=== PATIENT | female | born 1945 | race Caucasian/White ===

== ENCOUNTER → 2016-11-21 | Outpatient (CLI) | payer MEDICARE ==
--- NOTE | 2016-11-21 10:04 | USB ---
Reason for exam: clinical finding. History: Patient is postmenopausal. Family history of breast cancer in 2 maternal cousins. Took estrogen for 1 month beginning at age 43. Took progesterone for 1 month. Indicated problem(s): pain in the left breast. US Breast Limited BILAT Right breast ultrasound demonstrates axilla nodes. Left breast ultrasound includes all four quadrants, the retroareolar region and axilla. Finding demonstrates three nodes at 3 o'clock. These results were verbally communicated with the patient and result sheet given to the patient on 11/21/16. ASSESSMENT: Probably benign, BI-RAD 3 RECOMMENDATION: Ultrasound of the left breast in 6 months. Manage on a clinical basis with regard to pain in the left breast and right axillary.
--- NOTE | 2016-11-23 11:03 | MM ---
Reason for exam: clinical finding. Last mammogram was performed 11 months ago. History: Patient is postmenopausal. Family history of breast cancer in 2 maternal cousins. Took estrogen for 1 month beginning at age 43. Took progesterone for 1 month. Indicated problem(s): pain in the left breast. Physical Findings: Nurse did not find any significant physical abnormalities on exam. MG 3D Diag Mammo W/Cad TUNG Bilateral CC and MLO view(s) were taken. XCCL view(s) were taken of the right breast. Prior study comparison: January 03, 2016, bilateral MG 3d screening mammo w/cad. December 30, 2014, bilateral MG screening mammo w CAD. There are scattered fibroglandular densities. Developing asymmetry right axillary tissue. No significant new findings when compared with previous films. These results were verbally communicated with the patient and result sheet given to the patient on 11/21/16. ASSESSMENT: Benign, BI-RAD 2 RECOMMENDATION: Routine screening mammogram of both breasts in 1 year. Manage on a clinical basis with regard to right axillary.
== END | disposition home or self-care (01) ==
LOC: RADMAMWWP 08:06
PROVIDERS: ATTEND Internal Medicine
DX: N64.4 Mastodynia (principal)
CPT/HCPCS: 76642; G0204; G0279

== ENCOUNTER 2017-07-04 09:57 | Day surgery (SDC) | payer MEDICARE ==
[2017-07-02 11:14] VITALS: BMI 27.6
[~2017-07-04 09:57] MED LIST: LIDOCAINE 1% 20 ML VIAL (10MG/ML) FOR IV START INTRADERMA PRN
[2017-07-04 10:57] VITALS: RESP 16; TEMP 97.7
[2017-07-04 11:09] LABS: Glucose,Whole Blood 105 mg/dL (75-99)
[2017-07-04] MEDS: LACTATED RINGERS 1,000 ML IV SCH ×2 (11:11→11:49)
[2017-07-04] MEDS ORDERED: PROPOFOL 10 MG/ML 20 ML VIAL IV ONE (11:36)
[2017-07-04] MEDS ORDERED: MIDAZOLAM 2 MG/2 ML VIAL ONE (11:36)
[2017-07-04] MEDS ORDERED: fentaNYL (PF) 50 MCG/ML 2 ML AMP ONE (11:36)
--- NOTE | 2017-07-04 11:50 | P.PCN ---
Date of Procedure: 07/04/17 Procedure(s) Performed: BRIEF HISTORY: Patient is a 71-year-old pleasant white female, scheduled for an elective colonoscopy as a part of evaluation of blood in the stool. Her last colonoscopy was 10 years ago. PROCEDURE PERFORMED: Colonoscopy with snare polypectomy. PREOPERATIVE DIAGNOSIS: Hemoccult-positive stool IV sedation per Anesthesia. PROCEDURE: After informed consent was obtained, the patient, was brought into the endoscopy unit. IV sedation was administered by Anesthesia under continuous monitoring. Digital rectal examination was normal. Initially the Olympus CF- 160 flexible video colonoscope was then inserted in the rectum, gradually advanced into the cecum without any difficulty. Careful examination was performed as the scope was gradually being withdrawn. Ileocecal valve and the appendiceal orifice were visualized and appeared normal. Prep was excellent. In the base of the cecum there was a 1 cm flat polyp that was removed by snare polypectomy. Mucosa of the cecum, ascending colon, transverse colon, appeared normal. In the descending colon there was a 5 mm and 7 mm flat polyps would by snare polypectomy. Moderate sigmoid diverticulosis seen. The rest of the descending colon, sigmoid colon, and rectum appeared normal. Retroflexion was performed in the rectum and no lesions were seen. The patient tolerated the procedure well. IMPRESSION: 1 cm flat cecal polyp status post polypectomy 5 mm and 7 mm flat descending colon polyp status post polypectomy Scattered sigmoid diverticulosis RECOMMENDATIONS: Findings of this examination were discussed with the patient as well as a family. She was advised to follow with the biopsy results. If the biopsy shows a tubular adenoma she can have a repeat colonoscopy in 3 years..
[2017-07-04 12:12] VITALS: BP 167/74; PULSE 50
== END 2017-07-04 12:29 | disposition home or self-care (01) ==
LOC: ORWHC2ENDO 09:57
PROVIDERS: ATTEND Internal Medicine Gastroenterology
DX: D12.0 Benign neoplasm of cecum (principal); D12.4 Benign neoplasm of descending colon; K57.30 Diverticulosis of large intestine without perforation or abscess without bleeding; K21.9 Gastro-esophageal reflux disease without esophagitis; J45.909 Unspecified asthma, uncomplicated; F17.210 Nicotine dependence, cigarettes, uncomplicated; Z79.82 Long term (current) use of aspirin; Z79.899 Other long term (current) drug therapy; Z88.0 Allergy status to penicillin; Z88.1 Allergy status to other antibiotic agents
CPT/HCPCS: 88305; 45385; J2250; J3010; J2704

== ENCOUNTER → 2018-02-20 | Outpatient (CLI) | payer MEDICARE ==
--- NOTE | 2018-02-21 14:12 | MM ---
Reason for exam: screening (asymptomatic). Last mammogram was performed 1 year and 3 months ago. History: Patient is postmenopausal. Family history of breast cancer in 2 maternal cousins. Took estrogen for 1 month beginning at age 43. Took progesterone for 1 month. Physical Findings: A clinical breast exam by your physician is recommended on an annual basis and results should be correlated with mammographic findings. MG 3D Screening Mammo W/Cad Bilateral CC and MLO view(s) were taken. Prior study comparison: November 21, 2016, bilateral MG 3d diag mammo w/cad TUNG. January 03, 2016, bilateral MG 3d screening mammo w/cad. There are scattered fibroglandular densities. There is no discrete abnormality. ASSESSMENT: Negative, BI-RAD 1 RECOMMENDATION: Routine screening mammogram of both breasts in 1 year.
== END | disposition home or self-care (01) ==
LOC: RADMAMWWP 09:40
PROVIDERS: ATTEND Internal Medicine
DX: Z12.31 Encounter for screening mammogram for malignant neoplasm of breast (principal)
CPT/HCPCS: 77063; 77067

== ENCOUNTER → 2019-01-11 | Outpatient (CLI) | payer MEDICARE ==
--- NOTE | 2019-01-12 20:47 | MR ---
EXAMINATION TYPE: MR lumbar spine wo con DATE OF EXAM: 01/11/2019 COMPARISON: MRI lumbar spine June 20, 2013 HISTORY: LBP, other intervertebral disc degeneration, spondylosis without myelopathy or radiculopathy all per order. Low back pain for many years going into bilateral buttocks per patient. TECHNIQUE: Multiplanar, multisequence imaging of the lumbar spine is performed without IV contrast. FINDINGS: Sagittal images of the lumbar spine show vertebral body heights to remain satisfactory. Sta ble slightly straightened alignment is noted. Multilevel disc desiccation is redemonstrated with mode rate disc space narrowing and vacuum disc phenomenon at L5-S1 level redemonstrated. No new large post erior disc herniations are seen on sagittal images. The conus medullaris remains normal in position and signal ending inferior L1 level. Stable small hemangioma anterior inferior S1 level sagittal imag e 7. Mild multilevel anterior spurring in the lower lumbar spine is redemonstrated. Axial images show the T12-L1, L1-L2, and L2-L3 levels all to remain within normal limits. Axial images at L3-L4 level show mild broad disc bulge minimally effaces the anterior thecal sac, no significant change from prior. Axial images at the L4-L5 level mild facet degenerative changes and mild broad disc bulge minimally e ffacing anterior thecal sac, no significant change from prior. Axial images at the L5-S1 level show mild broad disc bulge with prominent left lateral disc protrusio n component. Spinal canal is grossly preserved. There is stable mild left-sided inferior neural edler inal narrowing. Persistent ectasia of the abdominal aorta without greater than 3.0 cm aneurysmal change. IMPRESSION: Multilevel degenerative changes in the lumbar spine most prominent at L5-S1 level without significant progression from 2014 MRI.
== END | disposition home or self-care (01) ==
LOC: RADMRIMAIN 11:36
PROVIDERS: ATTEND Physical Medicine & Rehabilitation
DX: M47.816 Spondylosis without myelopathy or radiculopathy, lumbar region (principal); M47.817 Spondylosis without myelopathy or radiculopathy, lumbosacral region
CPT/HCPCS: 72148

== ENCOUNTER → 2019-03-03 | Outpatient (CLI) | payer MEDICARE ==
--- NOTE | 2019-03-04 09:59 | MM ---
Reason for exam: screening (asymptomatic). Last mammogram was performed 1 year ago. History: Patient is postmenopausal. Family history of breast cancer in 2 maternal cousins. Took estrogen for 1 month beginning at age 43. Took progesterone for 1 month. Physical Findings: A clinical breast exam by your physician is recommended on an annual basis and results should be correlated with mammographic findings. MG 3D Screening Mammo W/Cad Bilateral CC and MLO view(s) were taken. Prior study comparison: February 20, 2018, bilateral MG 3d screening mammo w/cad. November 21, 2016, bilateral MG 3d diag mammo w/cad TNUG. The breast tissue is heterogeneously dense. This may lower the sensitivity of mammography. No suspicious abnormality. No significant changes when compared with prior studies. ASSESSMENT: Negative, BI-RAD 1 RECOMMENDATION: Routine screening mammogram of both breasts in 1 year.
== END | disposition home or self-care (01) ==
LOC: RADMAMWWP 08:39
PROVIDERS: ATTEND Internal Medicine
DX: Z12.31 Encounter for screening mammogram for malignant neoplasm of breast (principal)
CPT/HCPCS: 77063; 77067

== ENCOUNTER → 2019-12-30 | Outpatient (CLI) | payer MEDICARE ==
--- NOTE | 2019-12-31 12:35 | P.ARTDOP ---
Arterial Doppler LOWER EXTREMITY ARTERIAL DOPPLER: DATE OF SERVICE: 12/30/2019 Reason for study: Bilateral leg pain. Doppler waveforms: Multiphasic throughout on the right. Atypical throughout on the left.. Pulse volume recording: []. Pressure gradients: Mild gradient below the knee on the right. Above the thigh gradient on the left.. Ankle-brachial indices: 0.92 on the right and 0.61 on the left. Toe brachial indices: 0.59 on the right, 0.46 on the left Impression: Mild right fem-pop disease. Moderate left fem-pop disease. Cannot exclude iliac component. Clinical correlation recommended..
== END | disposition home or self-care (01) ==
LOC: RADUSWWP 12:45
PROVIDERS: ATTEND Physical Medicine & Rehabilitation
DX: I74.3 Embolism and thrombosis of arteries of the lower extremities (principal); M79.661 Pain in right lower leg; M79.662 Pain in left lower leg
CPT/HCPCS: 93923

== ENCOUNTER → 2021-04-18 | Outpatient (CLI) | payer MEDICARE ==
[2021-04-18 16:37] LABS: African American GFR (CKD) >90 (>60 ml/min/1.73 sqM); Blood Urea Nitrogen 14 mg/dL (7-17); Non-African American GFR(CKD) >90 (>60 ml/min/1.73 sqM)
--- NOTE | 2021-04-19 07:03 | CT ---
EXAMINATION TYPE: CT abdomen pelvis w con DATE OF EXAM: 04/18/2021 HISTORY: lower abdominal pain CT DLP: 1091.8mGycm Automated Exposure Control for Dose Reduction was Utilized. CONTRAST: CT scan of the abdomen and pelvis is performed with IV Contrast, patient injected with 100 mL of Isov ue 300. COMPARISON: None. FINDINGS: LUNG BASES: Slightly elevated left hemidiaphragm with mild peripheral left basilar linear scarring. LIVER/GB: No significant abnormality is appreciated. PANCREAS: Mild generalized fat replaced atrophy. SPLEEN: No significant abnormality is seen. ADRENALS: No significant abnormality is seen. KIDNEYS: Symmetric cortical medullary uptake and excretion without hydronephrosis seen bilaterally. A few small scattered simple-appearing thin-walled cysts bilaterally, largest right kidney measures 2. 8 x 2.0 cm axial image 18 series 7 centrally in the upper to mid pole aspect. BOWEL: Oral contrast reaches level of transverse colon. No suspicious small or large bowel dilatation . Terminal ileum appears within normal limits. Appendix not seen and presumed surgically absent. Dive rticula are identified sigmoid colon with mild to moderate ill-defined fluid and fat stranding surrou nding sigmoid colon in the pelvis. Findings are consistent with acute diverticulitis. No free air. No well-formed fluid collection or drainable abscess. UTERUS/ADNEXA: No gross abnormality seen. LYMPH NODES: No greater than 1cm abdominal or pelvic lymph nodes are appreciated. OSSEOUS STRUCTURES: Moderate disc space narrowing with vacuum disc phenomenon at L5-S1 level. OTHER: There is moderate mixed plaque in the ectatic aorta extending into branch vessels. Abdominal a balaji measures up to 2.9 cm AP diameter image 29 series 7 IMPRESSION: CT findings consistent with a mild to moderate uncomplicated acute diverticulitis in the sigmoid colon of the pelvis. Ordering physician made aware of CT results by the cardiac cath technologist shortly after exam was dictated
== END | disposition home or self-care (01) ==
LOC: RADCTMAIN 15:35
PROVIDERS: ATTEND Physician Assistant Medical
DX: R10.30 Lower abdominal pain, unspecified (principal)
CPT/HCPCS: 82565; 84520; 74177; 36415; Q9967

== ENCOUNTER 2021-11-03 19:52 | Emergency (ER) | payer MEDICARE ==
[2021-11-03 20:09] VITALS: RESP 16; TEMP 97.8
[2021-11-03] MEDS ORDERED: FAMOTIDINE 20 MG/2 ML VIAL IV STA (20:09)
--- NOTE | 2021-11-03 21:32 | XR ---
EXAMINATION TYPE: XR chest 1V portable DATE OF EXAM: 11/03/2021 8:31 PM COMPARISON: Chest radiographs from TECHNIQUE: XR chest 1V portable Frontal view of the chest. CLINICAL INDICATION:Female, 75 years old with history of allergic reaction; FINDINGS: Lungs/Pleura: There is no evidence of pleural effusion, focal consolidation, or pneumothorax. Pulmonary vascularity: Unremarkable. Heart/mediastinum: Cardiomediastinal silhouette is enlarged in size. Musculoskeletal: No acute osseous pathology. IMPRESSION: 1. No acute cardiopulmonary disease process. 2. COPD changes.
--- NOTE | 2021-11-03 21:55 | ED ---
General Adult HPI - General Chief complaint: Allergic Reaction Stated complaint: allergic reaction Time Seen by Provider: 11/03/21 19:54 Source: patient, EMS, RN notes reviewed, old records reviewed Mode of arrival: EMS Limitations: no limitations - History of Present Illness Initial comments: Activation is a 75-year-old female with past medical history remarkable for COPD, asthma, hypertension, chronic sinusitis who is on cefuroxime at home presents for an ALLERGIC reaction. States she has taken the medication one time previously. Begin taking that again over the last few days, and today took it at 6:30. Shortly thereafter she noticed difficulty breathing, lip swelling. She states that the symptoms progressively got worse starting at 7 PM. She called EMS who brought her to the emergency department for further evaluation. Upon arrival, EMS found the patient somewhat drooling, and administered Benadryl as well as IV Solu-Medrol. Patient's vital signs improved as well as her clinical picture. They determined she did not require an EpiPen at that time. She presents at this time for further evaluation. States she earlier she felt l vance she was having difficulty breathing as well as lip swelling which has since resolved. She states she is feeling at her baseline. Is mildly hypoxic down to 91% at this time. She states she does have a chronic history of COPD and asthma, and she likely lives at an oxygen saturation between 94 and 98%. Denies any other acute complaints at this time. Does have a history of multiple ALLERGIC reactions to different antibiotics. Denies chest pain, shortness breath, abdominal pain, nausea, vomiting. No other acute complaints. - Related Data Home Medications Medication Instructions Recorded Confirmed Aspirin [Adult Low Dose Aspirin EC] 81 mg PO DAILY 07/02/17 07/02/17 Cyanocobalamin (Vitamin B-12) 1,000 mcg PO DAILY 07/02/17 07/02/17 [Vitamin B-12] Losartan [Cozaar] 50 mg PO DAILY 07/02/17 07/02/17 Metoprolol Succinate [Toprol XL] 100 mg PO BID 07/02/17 07/02/17 [place]-3 Fatty Acids/Fish Oil [Fish 1 each PO DAILY 07/02/17 07/02/17 Oil 1,000 mg Softgel] Simvastatin [Zocor] 40 mg PO HS 07/02/17 07/02/17 Vit C/E/Zn/Coppr/Lutein/Zeaxan 1 each PO DAILY 07/02/17 07/02/17 [Preservision Areds 2 Softgel] Previous Rx's Medication Instructions Recorded EPINEPHrine (Auto Inject) [Epipen] 0.3 mg IM ONCE PRN #1 each 11/03/21 Allergies Allergy/AdvReac Type Severity Reaction Status Date / Time cefuroxime Allergy Anaphylaxis Verified 11/03/21 19:55 oxytetracycline Allergy Swelling Verified 07/04/17 10:43 [From Terramycin] amoxicillin trihydrate AdvReac Diarrhea Verified 07/04/17 10:43 [From Augmentin] azithromycin [From Zithromax] AdvReac Diarrhea Verified 07/04/17 10:43 potassium clavulanate AdvReac Diarrhea Verified 07/04/17 10:43 [From Augmentin] Review of Systems ROS Statement: Those systems with pertinent positive or pertinent negative responses have been documented in the HPI. Review of Systems: CONST: Denies fever EYES: Denies blurry vision ENT: Denies nasal congestion C/V: Denies Chest pain RESP: Denies shortness of breath GI: Denies abdominal pain : Denies dysuria SKIN: Denies rash. MSK: Denies joint pain. NEURO: Denies headache ROS Other: All systems not noted in ROS Statement are negative. Past Medical History Past Medical History: Asthma, GERD/Reflux, Hyperlipidemia, Hypertension, Osteoarthritis (OA), Pneumonia Additional Past Medical History / Comment(s): hx migraines, irregular heartbeat, allergy induced asthma, change in bowel movements, dry skin, History of Any Multi-Drug Resistant Organisms: None Reported Past Surgical History: Appendectomy, Hysterectomy, Orthopedic Surgery Additional Past Surgical History / Comment(s): colonoscopy, rt knee arthroscopy, violet shoulder rotator cuff, rt wrist ORIF x 2, D&C Past Anesthesia/Blood Transfusion Reactions: Family History of Problems w/ Anesthesia Additional Past Anesthesia/Blood Transfusion Reaction / Comment(s): daughter - PONV Past Psychological History: Anxiety Smoking Status: Current every day smoker Past Alcohol Use History: None Reported Past Drug Use History: None Reported - Past Family History Mother Family Medical History: No Reported History General Exam - General Exam Comments Initial Comments: General: Appears in no acute distress. HEAD: Normal with no signs of head trauma. EYES: PERRLA, EOMI, conjunctiva normal, no discharge. ENT: Hearing grossly intact, normal oropharynx. No stridor auscultated. No to ngue swelling or lip swelling. No posterior oropharyngeal swelling. Uvula is midline. RESPIRATORY: Clear breath sounds bilaterally. No wheezes, rales, or rhonchi. No increased work of breathing. Mild hypoxia on room air, initial documented is 88%. Currently 91% and seems to be improving. C/V: Regular rate and rhythm. S1 and S2 auscultated, no edema, peripheral pulses 2+ and intact throughout ABD: Abd is soft, nontender, nondistended EXT: Normal range of motion, no obvious deformity SKIN: No rashes or lesions observed on exposed skin. NEURO: Alert and oriented 4. Limitations: no limitations Course Vital Signs 11/03/21 11/03/21 19:55 20:09 Temperature 97.8 F Pulse Rate 56 L Respiratory 16 Rate Blood Pressure 144/81 O2 Sat by Pulse 88 L 94 L Oximetry Medical Decision Making - Medical Decision Making Based on the patient's presentation and physical exam, I do believe she likely experiencing an ALLERGIC reaction to the antibiotic. Cefuroxime was added to her ALLERGY list. I discussed that she should not take this medication and future. We will dispose of it here in the department. She already received Benadryl as well as 125 mg of IV Solu-Medrol. She will be given 40 mg of IV famotidine as well as obtain a chest x-ray due to her mild hypoxia. She'll be observed here in the department for improvement. She was in agreement with this plan. Chest x-ray shows COPD but no acute cardiopulmonary process. Oxygenation improves to 94-95% on room air. On reevaluation, exam is unchanged. No signs of respiratory distress. No signs of anaphylaxis. I discussed with her as well as family members at length that she should be started on a different antibiotic which I will defer to her ENT at this time. She can call them in the morning. I will provide her with a prescription for an EpiPen. She was in agreement this plan for her to his Benadryl at home as needed for tonight. Recommended strict return precautions. I will provide the patient with a prescription for EpiPen. [facility] in the next 3 days. I explained that the patient should return to the emergency department if they experience any worsening symptoms. Strict return precautions were discussed with the patient. The patient expressed understanding of these instructions. I answered all questions that the patient had. The patient was discharged home in good condition with their prescriptions and follow up information. Disposition Clinical Impression: Allergic reaction Disposition: HOME SELF-CARE Condition: Good Instructions (If sedation given, give patient instructions): Anaphylaxis (ED) Prescriptions: EPINEPHrine (Auto Inject) [Epipen] 0.3 mg IM ONCE PRN #1 each PRN Reason: Anaphylaxis Is patient prescribed a controlled substance at d/c from ED?: No Referrals: Marcelle Arellano MD [Primary Care Provider] - 1-2 days Time of Disposition: 21:30
[2021-11-03 21:57] VITALS: BP 180/68; PULSE 58
== END 2021-11-03 22:00 | disposition home or self-care (01) ==
LOC: EC 19:52
DX: R06.00 Dyspnea, unspecified (principal); R22.0 Localized swelling, mass and lump, head; T36.95XA Adverse effect of unspecified systemic antibiotic, initial encounter; I10 Essential (primary) hypertension; J44.9 Chronic obstructive pulmonary disease, unspecified; K21.9 Gastro-esophageal reflux disease without esophagitis; E78.5 Hyperlipidemia, unspecified; M19.90 Unspecified osteoarthritis, unspecified site; F17.200 Nicotine dependence, unspecified, uncomplicated; Z79.82 Long term (current) use of aspirin; Z79.899 Other long term (current) drug therapy; Z88.0 Allergy status to penicillin; Z88.1 Allergy status to other antibiotic agents
CPT/HCPCS: 71045; 96374; 99285

== ENCOUNTER → 2022-10-25 | Outpatient (CLI) | payer MEDICARE ==
--- NOTE | 2022-10-25 11:34 | CTL ---
EXAMINATION TYPE: CT Low Dose Lung DATE OF EXAM ORDERED: 10/25/2022 HISTORY: Z87.891 PERSONAL HISTORY OF NICOTINE DEPENDENCE. Lung cancer screening CT DLP: [address] CTDI: 2.29 mGy Automated exposure control for dose reduction was used. SCREENING VISIT: First screening visit COMPARISON: Chest radiograph 11/03/2021 TECHNIQUE: Low dose computed tomography scan was performed through the chest at 1 mm thick sections a nd reconstructed images in multiple planes at 1 mm and [address] DIAGNOSTIC QUALITY: Satisfactory FINDINGS: LUNG NODULES: No clinically significant pulmonary nodules. Right apical calcified granuloma. LUNGS: COPD: Severity: Mild upper lobe predominant centrilobular and paraseptal emphysematous changes. Fibrosis: Severity: None Lymph nodes: None Other findings: None RIGHT PLEURAL SPACE: Effusion: None Calcification: None Thickening: None Pneumothorax: None LEFT PLEURAL SPACE: Effusion: None Calcification: None Thickening: None Pneumothorax: None HEART: Heart Size: Normal Coronary Calcification: None Pericardial Effusion: None OTHER FINDINGS: Upper abdomen: None Bony thorax: None Supraclavicular region: None Other: Ascending thoracic aortic aneurysm measuring up to 4.0 cm. IMPRESSION: 1. No clinically significant pulmonary nodules. 2. Mild COPD changes. 3. Ascending thoracic aorta aneurysm measuring up to 4.[address] LUNG RAD AND CT CHEST RECOMMENDATION: Lung-Rad 1 Negative: Continue annual screening with LDCT in 12 months.
== END | disposition home or self-care (01) ==
LOC: RADCTMAIN 10:49
PROVIDERS: ATTEND Family Medicine
DX: Z12.2 Encounter for screening for malignant neoplasm of respiratory organs (principal); J43.2 Centrilobular emphysema; I71.21 Aneurysm of the ascending aorta, without rupture; Z87.891 Personal history of nicotine dependence
CPT/HCPCS: 71271

== ENCOUNTER → 2023-04-12 | Outpatient (CLI) | payer MEDICARE | END | disposition home or self-care (01) | LOC: LABWHC1 08:44 | PROVIDERS: ATTEND Otolaryngology | DX: Z53.9 Procedure and treatment not carried out, unspecified reason (principal) ==

== ENCOUNTER 2023-09-21 11:13 | Day surgery (SDC) | payer MEDICARE ==
[2023-09-20 11:34] VITALS: BMI 28.1
[2023-09-21] MEDS: LACTATED RINGERS 1,000 ML IV SCH (12:00)
[2023-09-21 12:15] VITALS: TEMP 98.7
[2023-09-21] MEDS ORDERED: LIDOCAINE 1% INJ 10MG/ML (20 ML MDV) ONE (12:18)
[2023-09-21] MEDS ORDERED: PROPOFOL 10 MG/ML 20 ML VIAL IV ONE (12:18)
--- NOTE | 2023-09-21 12:45 | P.PCN ---
Date of Procedure: 09/21/23 Procedure(s) Performed: BRIEF HISTORY: Patient is a 77-year-old pleasant White female scheduled for an elective colonoscopy as a part of Evaluation of prior history of colon polyps. PROCEDURE PERFORMED: Colonoscopy. PREOPERATIVE DIAGNOSIS: [History of colon polyps IV sedation per Anesthesia. PROCEDURE: After informed consent was obtained, the patient, was brought into the endoscopy unit. IV sedation was administered by Anesthesia under continuous monitoring. Digital rectal examination was normal. Initially the Olympus CF-160 flexible video colonoscope was then inserted in the rectum, gradually advanced into the Sigmoid: Further advancement was not possible because of acute angle duration this area. The scope was removed and a pediatric colonoscopy was then inserted in the rectum and gradually advanced into cecum With severe difficulty. Careful examination was performed as the scope was gradually being withdrawn. Ileocecal valve and the appendiceal orifice were visualized and appeared normal. Prep was excellent. Mucosa of the cecum, Appeared normal. In the ascending colon there were 2 small polyps measuring 3 and 4 mm in size that was removed by cold biopsy. In the transverse colon as well as in 4-5 mm polyp that was removed by cold biopsy. Rest of the descending colon, sigmoid colon, and rectum appeared normal. Scattered sigmoid diverticulosis.Retroflexion was performed in the rectum and no lesions were seen. The patient tolerated the procedure well. IMPRESSION: 3 mm and 4 mm ascending colon polyp status post cold biopsy 3 mm and 5 mm transverse colon polyp status post cold biopsy Moderate sigmoid diverticulosis. RECOMMENDATIONS: Findings of this examination were discussed with the patient As well as her family..She was advised to follow with the biopsy results. If the biopsy result adenoma she can have a repeat colonoscopy in 5 years.
[2023-09-21 12:58] VITALS: RESP 16
[2023-09-21 13:38] VITALS: BP 139/68; PULSE 68
== END 2023-09-21 13:31 | disposition home or self-care (01) ==
LOC: ORWHC2ENDO 11:13
PROVIDERS: ATTEND Internal Medicine Gastroenterology
DX: Z12.11 Encounter for screening for malignant neoplasm of colon (principal); D12.2 Benign neoplasm of ascending colon; D12.3 Benign neoplasm of transverse colon; K57.30 Diverticulosis of large intestine without perforation or abscess without bleeding; J44.89 Other specified chronic obstructive pulmonary disease; F17.210 Nicotine dependence, cigarettes, uncomplicated; G43.909 Migraine, unspecified, not intractable, without status migrainosus; Z79.51 Long term (current) use of inhaled steroids; Z79.899 Other long term (current) drug therapy; Z86.010 Personal history of colon polyps; Z79.82 Long term (current) use of aspirin; Z88.1 Allergy status to other antibiotic agents; Z88.8 Allergy status to other drugs, medicaments and biological substances
CPT/HCPCS: 88305; 45380; J2001; J2704

== ENCOUNTER → 2023-11-02 | Outpatient (CLI) | payer MEDICARE ==
--- NOTE | 2023-11-03 15:10 | CTL ---
CT LUNG RAD AND CT CHEST RECOMMENDATION: Lung-Rad 1 Negative: Continue annual screening with LDCT in 12 months.
== END | disposition home or self-care (01) ==
LOC: RADCTMAIN 09:18
PROVIDERS: ATTEND Internal Medicine
DX: Z12.2 Encounter for screening for malignant neoplasm of respiratory organs (principal); F17.210 Nicotine dependence, cigarettes, uncomplicated
CPT/HCPCS: 71271